=== PATIENT | male | born 1955 | race Caucasian/White ===

== ENCOUNTER 2022-10-21 09:29 | Emergency (ER) | payer OTHER ==
[~2022-10-21] VITALS: Ht 170.2 cm; Wt 82.6 kg
[2022-10-21] MEDS ORDERED: HALOPERIDOL LACTATE INJ 5 MG/ML VIAL ONE ×2 (09:41→22:35)
[2022-10-21] MEDS ORDERED: diphenhydrAMINE HCL 50 MG/ML VIAL ONE (09:41)
[2022-10-21] MEDS ORDERED: LORAZEPAM INJ 2 MG/ML VIAL ONE ×3 (09:42→22:35)
[2022-10-21] MEDS ORDERED: HALOPERIDOL LACTATE INJ 5 MG/ML VIAL IM ONE (10:00)
[2022-10-21] MEDS ORDERED: LORAZEPAM INJ 2 MG/ML VIAL IM ONE (10:00)
[2022-10-21] MEDS ORDERED: diphenhydrAMINE HCL 50 MG/ML VIAL IM/IV ONE (10:00)
--- NOTE | 2022-10-21 10:15 | NUR ---
ATIVAN, BENADRYL, AND HALDOL IM GIVEN INDICATED, MARTIN WELL.
--- NOTE | 2022-10-21 11:20 | NUR ---
RIGHT HAND #20, BLOOD DRAWN AND COLLECTED BY PHLEB AT BEDSIDE
--- NOTE | 2022-10-21 11:29 | NUR ---
XAVIER GOMEZ (SISTER) [phone]
[2022-10-21 11:33] LABS: BASOPHILS % (AUTO) 0.1 % (0.0-2.0); HEMATOCRIT 44 % (39-51); MEAN CORPUSCULAR HGB CONC 34 g/dl (31.0-36.0); MEAN CORPUSCULAR VOLUME 93 fL (80-96); MONOCYTES # (AUTO) 0.7 K/uL (0.1-1.30); MONOCYTES % (AUTO) 6.5 % (2.0-12.0); NEUTROPHILS # (AUTO) 9.2 K/uL (1.8-8.9); NEUTROPHILS % (AUTO) 84.4 % (43.0-81.0); PLATELET COUNT (AUTO) 214 K/uL (150-450); RED BLOOD CELL COUNT(AUTO) 4.74 MIL/uL (4.5-6.0); WHITE BLOOD COUNT (AUTO) 10.9 K/uL (4.3-11.0)
--- NOTE | 2022-10-21 11:51 | NUR ---
URINE SAMPLE COLLECTED AND SENT TO LAB
[2022-10-21 11:55] LABS: ALANINE AMINOTRANSFERASE 39 U/L (12-78); ALBUMIN 4.2 g/dL (3.4-5.0); ALKALINE PHOSPHATASE 71 U/L (46-116); ASPARTATE AMINOTRANSFERASE 60 U/L (15-37); BILIRUBIN,DIRECT 0.2 mg/dL (0.0-0.2); CALCIUM, SERUM 9.3 mg/dL (8.5-10.1); CARBON DIOXIDE 18 mmol/L (21-32); CHLORIDE 107 mmol/L (98-107); CREATININE 1.3 mg/dL (0.6-1.3); GLUCOSE 120 mg/dL (74-106); POTASSIUM 3.4 mmol/L (3.5-5.1); SODIUM SERUM 144 mmol/L (136-145); TOTAL PROTEIN, SERUM 7.9 g/dL (6.4-8.2); UREA NITROGEN, BLOOD 25 mg/dL (7-18)
--- NOTE | 2022-10-21 13:40 | NUR ---
LEFT MESSAGE TO XAVIER FOR CONSENT FOR LAC REPAIR
[2022-10-21 13:42] LABS: BILIRUBIN,URINE 1+ (NEGATIVE); COLOR,URINE YELLOW (YELLOW); LEUKOCYTE ESTERASE ,URINE NEGATIVE (NEGATIVE); NITRITE, URINE NEGATIVE (NEGATIVE); PROTEIN,URINE 1+ mg/dl (NEGATIVE); UGLUCOSE NEGATIVE (NEGATIVE); UROBILINOGEN,URINE 0.2 EU/dL (0.2)
--- NOTE | 2022-10-21 13:43 | NUR ---
SPOKE W/ XAVIER (SISTER) AND PROVIDED VERBAL/TELEPHONE CONSENT FOR LEFT ARM LAC REPAIR; CONSENT CONFIRMED BY ANOTHER RN, SHAWN.
--- NOTE | 2022-10-21 13:44 | NUR ---
VERBAL/TELEPHONE CONSENT PROVIDED BY XAVIER (SISTER) FOR CONSCIOUS SEDATION OF PT FOR LAC REPAIR/SUTURE PROCEDURE.
[2022-10-21] MEDS ORDERED: LIDOCAINE 1% INJ 50 ML MDV IJ ONE (14:11)
[2022-10-21 14:14] LABS: ACETAMINOPHEN < 10 ug/ml (10-30)
[2022-10-21 14:15] LABS: ALCOHOL, BLOOD < 3 mg/dL (0-0)
[2022-10-21] MEDS ORDERED: LORAZEPAM INJ 2 MG/ML VIAL IV ONE ×2 (14:30→22:30)
[2022-10-21] MEDS ORDERED: KETAMINE HCL (500MG/10ML) 50 MG/ML VIAL ONE (14:33)
[2022-10-21] MEDS ORDERED: IOHEXOL-350 100 ML VIAL IV ONE (14:59)
[2022-10-21] MEDS ORDERED: IV NS 0.9% 250 ML IV ONE (14:59)
[2022-10-21] MEDS ORDERED: IV NS 0.9% 1,000 ML BAG IV ONE (15:00)
[2022-10-21] MEDS ORDERED: KETAMINE HCL(200MG/20ML) 10 MG/ML VIAL IV ONE (15:00)
--- NOTE | 2022-10-21 15:17 | NUR ---
PT RETURNED FROM RADIOLOGY ACCOMPANIED BY RN AND RT AT BEDSIDE
[2022-10-21] MEDS ORDERED: TDAP [DIPH/PERTUSSIS/TET] 0.5 ML VIAL IM ONE ×2 (16:30→16:31)
--- NOTE | 2022-10-21 17:50 | NUR ---
[facility] called. awaiting for peer to peer.
[2022-10-21 17:51] LABS: CALCIUM, SERUM 8.6 mg/dL (8.5-10.1); CREATININE 1.1 mg/dL (0.6-1.3); POTASSIUM 3.8 mmol/L (3.5-5.1)
--- NOTE | 2022-10-21 18:01 | NUR ---
covid swab taken
[2022-10-21 19:40] LABS: BACTERIA,URINE Few /HPF (None Seen); SQUAMOUS EPITHELIAL CELL,UR Few /HPF (None Seen); WBC,URINE NONE SEEN /HPF (0-3)
--- NOTE | 2022-10-21 20:24 | NUR ---
FAXED JOHANA SHEET AND CLINIC[facility] TO [facility]. C/O BASSAM AT [phone]
--- NOTE | 2022-10-21 20:55 | NUR ---
PATIENT WAS EVALUATED BY YURIY FROM [facility] THROUGH FACE TIME VIDEO CALL. PER MARCIA PT WILL BE PLACED ON 5150 HOLD. DOCUMENT WILL BE FAXED OVER TO ER AND [facility] WILL FOLLOW UP FOR BED
--- NOTE | 2022-10-21 22:18 | NUR ---
SPOKE TO MARCIA FROM CRISIS TEAM AT [facility]. WAITING FOR HOLD TO BE FAXED OVER. [facility]: [phone]
[2022-10-21] MEDS ORDERED: HALOPERIDOL LACTATE INJ 5 MG/ML VIAL IV ONE (22:30)
--- NOTE | 2022-10-22 05:03 | NUR ---
SPOKE TO RYAN AT [facility]. THEY ARE WORKING ON FINDING A PLACEMENT AT [facility]ITHER [facility] OR [facility].
--- NOTE | 2022-10-22 10:05 | NUR ---
LIZZIE FROM [facility] [phone]
--- NOTE | 2022-10-22 11:21 | NUR ---
CALLED [facility] [phone] PER MELISSA HULL WILL CALL BACK.
--- NOTE | 2022-10-22 11:28 | NUR ---
DR. HULL SPEAKING WITH DR. MAHER.
--- NOTE | 2022-10-22 11:53 | NUR ---
PT [facility] UNDER DR. LANDA CALL [phone] TRANSPORT BLS PRN ETA [phone] PER GURDEEP POLLARD
[2022-10-22 11:55] VITALS: BP 148/79
--- NOTE | 2022-10-22 12:55 | NUR ---
AD FROM [facility] WILL FAX OVER 5150 HOLD OF PT. EMT AT BEDSIDE TO PICKUP PT AND CURRENTLY WAITING FOR 5150 DOCUMENT.
--- NOTE | 2022-10-22 13:24 | NUR ---
PATIENT TAKEN BY [facility] FOR TRANSFER TO [facility] IN A STABLE- COOPERATIVE MOOD. REPORT GIVEN TO [facility] STAFF.
== END 2022-10-22 13:24 | disposition short-term general hospital (02) ==
LOC: ER 09:35
DX: F29 Unspecified psychosis not due to a substance or known physiological condition (principal); S41.112A Laceration without foreign body of left upper arm, initial encounter; W22.8XXA Striking against or struck by other objects, initial encounter; W25.XXXA Contact with sharp glass, initial encounter; Y92.039 Unspecified place in apartment as the place of occurrence of the external cause; Z20.822 Contact with and (suspected) exposure to COVID-19; F20.9 Schizophrenia, unspecified; R94.31 Abnormal electrocardiogram [ECG] [EKG]
CPT/HCPCS: 12032; 99291; 96372; 96374; 90471; 96361; 96375; 99152; 93005; 90715; 71045; 96376; 73090; 73130 ×2; 73206; 85025; 80048 ×2; 80076; 81001; 36415; 84484; 87426; 80143; 80320; 80307; J2060 ×3; J1200; J1630 ×2; J3490 ×2; J7050; A6403; Q9967; C9803 ×2; U0003; G0480; G0500